=== PATIENT | male | born 1965 | race Caucasian/White ===

== ENCOUNTER 2024-01-27 21:03 | Emergency (ER) | payer OTHER ==
[~2024-01-27] VITALS: Ht 182.9 cm; Wt 104.3 kg
[~2024-01-27 21:03] MED LIST: DICLOFENAC SOD100 G1 TOP; FAMO20 PO; HYDMOR2 PO; HYDROCHLOROTH12.5 MG PO; MEDICAL MARIJUANA; METF500 PO; NAPR500 PO; NIAC500 PO; THERA-D2000 UNIT PO; TRAM50 PO; Ultram50 MG PO; Zofran Odt4 MG SL
[2024-01-27 21:44] LABS: BASOPHILS ABSOLUTE AUTO 0.04 K/mm3 (0.00-0.23); BASOPHILS PERCENT AUTO 0 % (0-2); EOSINOPHILS ABSOLUTE AUTO 0.02 K/mm3 (0.00-0.68); EOSINOPHILS PERCENT AUTO 0 % (0-6); Hematocrit 36.1 % (37.0-53.0); Hemoglobin 12.1 g/dL (13.5-17.5); IMMATURE GRAN ABSOLUTE AUTO 0.09 K/mm3 (0.00-0.10); IMMATURE GRAN PERCENT AUTO 1 % (0-1); LYMPHOCYTES ABSOLUTE AUTO 1.79 K/mm3 (0.84-5.20); LYMPHOCYTES PERCENT AUTO 18 % (21-46); MONOCYTES ABSOLUTE AUTO 0.55 K/mm3 (0.16-1.47); MONOCYTES PERCENT AUTO 6 % (4-13); Mean Corpuscular HGB Conc 33.5 g/dL (31.5-36.5); Mean Corpuscular Volume 98 fL (80-100); Mean Platelet Volume 9.1 fL (9.1-12.4); NEUTROPHILS ABSOLUTE AUTO 7.28 K/mm3 (1.96-9.15); NEUTROPHILS PERCENT AUTO 75 % (41-73); Platelet Count 338 K/mm3 (150-400); RDW Coefficient Variation 14.4 % (11.7-14.2); RDW Standard Deviation 51.4 fL (35.1-46.3); Red Blood Cell Count 3.67 M/mm3 (4.30-5.90); White Blood Cell Count 9.77 K/mm3 (4.00-11.30)
[2024-01-27 22:13] LABS: Alanine Aminotransfer (ALT/SGP 102 U/L (12-78); Albumin/Globulin Ratio 0.9 (0.8-1.8); Alk Phos 172 U/L (50-136); Anion Gap 10 mmol/L (3-11); Aspartate Aminotrans (AST/SGOT 45 U/L (12-37); Bilirubin, Total 0.5 mg/dL (0.1-1.0); Blood Urea Nitrogen 29 mg/dL (8-24); Bun/Creatinine Ratio 26.9 (12.0-20.0); CO2, Blood 24 mmol/L (21-32); Calcium, Blood 8.5 mg/dL (8.5-10.1); Chloride, Blood 109 mmol/L (98-108); Creatinine, Blood 1.08 mg/dL (0.60-1.20); Globulin, Blood 3.4 g/dL (2.2-4.0); Glomerular Filtration Rate 79 (60-); Glucose, Blood 322 mg/dL (70-99); Potassium, Blood 4.2 mmol/L (3.5-5.5); Sodium, Blood 139 mmol/L (136-145); Total Protein, Blood 6.4 g/dL (6.4-8.2)
[2024-01-27 22:57] LABS: Magnesium, Blood 1.5 mg/dL (1.6-2.4)
[2024-01-27 23:06] LABS: Ethanol (Alcohol), Blood, Med <3 mg/dL
[2024-01-27] MEDS ORDERED: Insulin Regular 100 Unit/ML 1ML Dose SC ONE (23:40)
[2024-01-27] MEDS ORDERED: Furosemide 10 MG / ML 2ML Vial IV ONE (23:40)
[2024-01-27] MEDS ORDERED: Magnesium Oxide 400 MG Tab PO ONE (23:55)
[2024-01-28] VITALS: BP 129/84
[2024-01-28] MEDS ORDERED: Lasix20 MG PO ×2 (00:01→13:53)
[2024-01-28] MEDS ORDERED: Amiodarone HCl200 MG PO (21:00)
[2024-01-28] MEDS ORDERED: Restoril7.5 MG PO (21:01)
[2024-01-28] MEDS ORDERED: AMLODIPINE BESYL5 MG PO (21:01)
[2024-01-28] MEDS ORDERED: LIPITOR80 MG PO (21:01)
[2024-01-28] MEDS ORDERED: METOPROLOL TART5010 PO (21:02)
[2024-01-28] MEDS ORDERED: ELIQUIS5 M3 PO (21:02)
[2024-01-28] MEDS ORDERED: NIAC500 PO (21:02)
[2024-01-28] MEDS ORDERED: VITAMIN D32000 UNI1 PO (21:03)
[2024-01-28] MEDS ORDERED: BIKTARVY 50-201 EAC1 PO (21:03)
[2024-01-30] MEDS ORDERED: ASPI81CH PO (15:50)
[2024-01-30] MEDS ORDERED: FURO40 PO (15:51)
[2024-01-30] MEDS ORDERED: METO50ER PO (15:53)
[2024-01-30] MEDS ORDERED: NITR.4SL SL (15:53)
[2024-01-30] MEDS ORDERED: JARDIANCE25 MG PO (15:54)
[2024-01-30] MEDS ORDERED: POTCHL20ER PO (15:55)
== END 2024-01-28 00:11 | disposition home or self-care (01) ==
LOC: ER 21:03
PROVIDERS: Physician Assistant
DX: I50.9 Heart failure, unspecified (principal); E11.65 Type 2 diabetes mellitus with hyperglycemia; E83.42 Hypomagnesemia; Z79.84 Long term (current) use of oral hypoglycemic drugs; Z79.899 Other long term (current) drug therapy; Z91.018 Allergy to other foods; Z88.8 Allergy status to other drugs, medicaments and biological substances
CPT/HCPCS: 71046; 80053; 82947; 83605; 83690; 83735; 83880; 84145; 84484; 85025; 93005; 93010; 96374; 99285-25; A9270; J1815; J1940

== ENCOUNTER 2024-01-28 13:30 | Emergency (ER) | payer OTHER ==
[~2024-01-28] VITALS: Ht 182.9 cm; Wt 104.3 kg
[~2024-01-28 13:30] MED LIST changes: +Lasix20 MG PO
[2024-01-28 13:48] VITALS: BP 134/86
[2024-01-28] MEDS ORDERED: Lasix20 MG PO (13:53)
[2024-01-28] MEDS ORDERED: Furosemide 20 MG Tab PO ONE (13:55)
[2024-01-28] MEDS ORDERED: Amiodarone HCl200 MG PO (21:00)
[2024-01-28] MEDS ORDERED: Restoril7.5 MG PO (21:01)
[2024-01-28] MEDS ORDERED: LIPITOR80 MG PO (21:01)
[2024-01-28] MEDS ORDERED: AMLODIPINE BESYL5 MG PO (21:01)
[2024-01-28] MEDS ORDERED: METOPROLOL TART5010 PO (21:02)
[2024-01-28] MEDS ORDERED: NIAC500 PO (21:02)
[2024-01-28] MEDS ORDERED: ELIQUIS5 M3 PO (21:02)
[2024-01-28] MEDS ORDERED: BIKTARVY 50-201 EAC1 PO (21:03)
[2024-01-28] MEDS ORDERED: VITAMIN D32000 UNI1 PO (21:03)
[2024-01-30] MEDS ORDERED: ASPI81CH PO (15:50)
[2024-01-30] MEDS ORDERED: FURO40 PO (15:51)
[2024-01-30] MEDS ORDERED: METO50ER PO (15:53)
[2024-01-30] MEDS ORDERED: NITR.4SL SL (15:53)
[2024-01-30] MEDS ORDERED: JARDIANCE25 MG PO (15:54)
[2024-01-30] MEDS ORDERED: POTCHL20ER PO (15:55)
== END 2024-01-28 13:52 | disposition home or self-care (01) ==
LOC: ER 13:30
DX: Z76.0 Encounter for issue of repeat prescription (principal); E11.9 Type 2 diabetes mellitus without complications; Z91.018 Allergy to other foods; Z88.8 Allergy status to other drugs, medicaments and biological substances; Z79.84 Long term (current) use of oral hypoglycemic drugs; Z79.899 Other long term (current) drug therapy
CPT/HCPCS: 99282; A9270

== ENCOUNTER 2024-01-28 20:22 | Emergency (ER) | payer OTHER ==
[~2024-01-28] VITALS: Ht 182.9 cm; Wt 104.3 kg
[2024-01-28 21:00] LABS: BASOPHILS ABSOLUTE AUTO 0.04 K/mm3 (0.00-0.23); BASOPHILS PERCENT AUTO 0 % (0-2); EOSINOPHILS ABSOLUTE AUTO 0.04 K/mm3 (0.00-0.68); EOSINOPHILS PERCENT AUTO 0 % (0-6); Hematocrit 38.1 % (37.0-53.0); Hemoglobin 12.7 g/dL (13.5-17.5); IMMATURE GRAN ABSOLUTE AUTO 0.05 K/mm3 (0.00-0.10); IMMATURE GRAN PERCENT AUTO 1 % (0-1); LYMPHOCYTES ABSOLUTE AUTO 1.59 K/mm3 (0.84-5.20); LYMPHOCYTES PERCENT AUTO 16 % (21-46); MONOCYTES ABSOLUTE AUTO 0.54 K/mm3 (0.16-1.47); MONOCYTES PERCENT AUTO 5 % (4-13); Mean Corpuscular HGB 32.8 pg (26.0-34.0); Mean Corpuscular HGB Conc 33.3 g/dL (31.5-36.5); Mean Corpuscular Volume 98 fL (80-100); Mean Platelet Volume 9.1 fL (9.1-12.4); NEUTROPHILS ABSOLUTE AUTO 7.89 K/mm3 (1.96-9.15); NEUTROPHILS PERCENT AUTO 78 % (41-73); Platelet Count 365 K/mm3 (150-400); RDW Coefficient Variation 14.5 % (11.7-14.2); RDW Standard Deviation 51.9 fL (35.1-46.3); Red Blood Cell Count 3.87 M/mm3 (4.30-5.90); White Blood Cell Count 10.15 K/mm3 (4.00-11.30)
[2024-01-28] MEDS ORDERED: Amiodarone HCl200 MG PO (21:00)
[2024-01-28] MEDS ORDERED: AMLODIPINE BESYL5 MG PO (21:01)
[2024-01-28] MEDS ORDERED: Restoril7.5 MG PO (21:01)
[2024-01-28] MEDS ORDERED: LIPITOR80 MG PO (21:01)
[2024-01-28] MEDS ORDERED: ELIQUIS5 M3 PO (21:02)
[2024-01-28] MEDS ORDERED: METOPROLOL TART5010 PO (21:02)
[2024-01-28] MEDS ORDERED: NIAC500 PO (21:02)
[2024-01-28] MEDS ORDERED: VITAMIN D32000 UNI1 PO (21:03)
[2024-01-28] MEDS ORDERED: BIKTARVY 50-201 EAC1 PO (21:03)
[2024-01-28 21:20] LABS: Albumin, Blood 3.1 g/dL (3.4-5.0); Albumin/Globulin Ratio 0.8 (0.8-1.8); Bilirubin, Total 0.6 mg/dL (0.1-1.0); Bun/Creatinine Ratio 21.3 (12.0-20.0); Calcium, Blood 8.6 mg/dL (8.5-10.1); Creatinine, Blood 1.36 mg/dL (0.60-1.20); Globulin, Blood 3.8 g/dL (2.2-4.0); Potassium, Blood 4.4 mmol/L (3.5-5.5); Total Protein, Blood 6.9 g/dL (6.4-8.2)
[2024-01-28] MEDS ORDERED: Furosemide 10 MG/ML 4ML Vial IV ONE (23:40)
[2024-01-29 02:16] VITALS: BP 153/93
[2024-01-30] MEDS ORDERED: ASPI81CH PO (15:50)
[2024-01-30] MEDS ORDERED: FURO40 PO (15:51)
[2024-01-30] MEDS ORDERED: NITR.4SL SL (15:53)
[2024-01-30] MEDS ORDERED: METO50ER PO (15:53)
[2024-01-30] MEDS ORDERED: JARDIANCE25 MG PO (15:54)
[2024-01-30] MEDS ORDERED: POTCHL20ER PO (15:55)
== END 2024-01-29 02:18 | disposition home or self-care (01) ==
LOC: ER 20:22
PROVIDERS: Emergency Medicine
DX: I50.9 Heart failure, unspecified (principal); N17.9 Acute kidney failure, unspecified; Z95.1 Presence of aortocoronary bypass graft; E11.9 Type 2 diabetes mellitus without complications; Z79.84 Long term (current) use of oral hypoglycemic drugs; Z79.899 Other long term (current) drug therapy; Z91.018 Allergy to other foods; Z88.8 Allergy status to other drugs, medicaments and biological substances
CPT/HCPCS: 71046; 71260; 80053; 83880; 84484; 85025; 85379; 93005; 93010; 93971; 96374; 96374-59; 99285-25; J1940; Q9967

== ENCOUNTER 2024-07-22 10:08 | Inpatient (IN) | payer OTHER ==
[~2024-07-22] VITALS: Ht 177.8 cm; Wt 90.3 kg
[~2024-07-22 10:08] MED LIST changes: +AMLODIPINE BESYL5 MG PO; +ASPI81CH PO; +Amiodarone HCl200 MG PO; +BIKTARVY 50-201 EAC1 PO; +ELIQUIS5 M3 PO; +FURO40 PO; +JARDIANCE25 MG PO; +LIPITOR80 MG PO; +METO50ER PO; +METOPROLOL TART5010 PO; +NITR.4SL SL; +POTCHL20ER PO; +Restoril7.5 MG PO; +VITAMIN D32000 UNI1 PO
[2024-07-22 11:33] LABS: BASOPHILS ABSOLUTE AUTO 0.02 K/mm3 (0.00-0.23); BASOPHILS PERCENT AUTO 0 % (0-2); EOSINOPHILS ABSOLUTE AUTO 0.03 K/mm3 (0.00-0.68); EOSINOPHILS PERCENT AUTO 1 % (0-6); Hematocrit 52.2 % (37.0-53.0); Hemoglobin 18.1 g/dL (13.5-17.5); IMMATURE GRAN ABSOLUTE AUTO 0.04 K/mm3 (0.00-0.10); IMMATURE GRAN PERCENT AUTO 1 % (0-1); LYMPHOCYTES ABSOLUTE AUTO 1.25 K/mm3 (0.84-5.20); LYMPHOCYTES PERCENT AUTO 20 % (21-46); MONOCYTES ABSOLUTE AUTO 0.52 K/mm3 (0.16-1.47); MONOCYTES PERCENT AUTO 8 % (4-13); Mean Corpuscular HGB Conc 34.7 g/dL (31.5-36.5); Mean Corpuscular Volume 95 fL (80-100); Mean Platelet Volume 10.6 fL (9.1-12.4); NEUTROPHILS ABSOLUTE AUTO 4.48 K/mm3 (1.96-9.15); NEUTROPHILS PERCENT AUTO 71 % (41-73); Platelet Count 190 K/mm3 (150-400); RDW Coefficient Variation 15.5 % (11.7-14.2); RDW Standard Deviation 54.4 fL (35.1-46.3); Red Blood Cell Count 5.49 M/mm3 (4.30-5.90); White Blood Cell Count 6.34 K/mm3 (4.00-11.30)
[2024-07-22 11:34] LABS: Bilirubin, Total 1.9 mg/dL (0.1-1.0); Bun/Creatinine Ratio 17.8 (12.0-20.0); Calcium, Blood 9.9 mg/dL (8.5-10.1); Creatinine, Blood 1.01 mg/dL (0.60-1.20); Globulin, Blood 3.9 g/dL (2.2-4.0); Potassium, Blood 3.9 mmol/L (3.5-5.5); Total Protein, Blood 7.9 g/dL (6.4-8.2)
[2024-07-22] MEDS ORDERED: Nitroglycerin 0.4 MG SUBL SL PRN (18:30)
[2024-07-22 19:19] LABS: Anti-Xa UFH, PHA Monitoring 0.72 IU/mL; International Normalized Ratio 1.01; Prothrombin Time Results 10.8 Sec (9.7-11.5)
[2024-07-22] MEDS ORDERED: Dose Adjust by Pharmacy XX STA (19:52)
[2024-07-22] MEDS ORDERED: Heparin Sodium,Porcine/0.5 NS 500 ML IV SCH (19:55)
[2024-07-22] MEDS ORDERED: FLU VACC TS2024-25(6MOS UP)/PF 45 MCG/0.5 ML SYRINGE IM ONE (20:00)
[2024-07-22] MEDS ORDERED: Insulin Human Lispro 100 Units/ML 3ML Syringe SC SCH (21:00)
[2024-07-22] MEDS ORDERED: Atorvastatin 40 MG Tab PO SCH (21:00)
[2024-07-22] MEDS ORDERED: Amiodarone HCl 200 MG Tab PO SCH (21:00)
[2024-07-22] MEDS ORDERED: Temazepam 7.5 MG Cap PO SCH (21:00)
--- NOTE | 2024-07-22 21:30 | NUR ---
PT ARRIVED TO UNIT. VSS ON RA. PT HAS NO CURRENT C/O CP, SOB, OR DIZZINESS. PT ON TELE- NSR 80s. NEW PIV PLACED IN L FOREARM FOR COMFORT PER PT REQ. HEPARIN DRIP CONTINUED. PT AMBULATING INDEPENDENTLY. CBG 164 UPON ARRIVAL TO UNIT. NPO AT 0000 FOR HEART CATH PROCEDURE. CALL REED WITHIN REACH. NO FURTHER QUESTIONS OR CONCERNS AT THIS TIME. WILL CONTINUE TO MONITOR.
[2024-07-22 21:36] VITALS: BP 104/88
[2024-07-23] VITALS (7 sets, daily range): BP systolic 103–124; BP diastolic 67–86
[2024-07-23 02:17] LABS: Hematocrit 49.5 % (37.0-53.0); Hemoglobin 17.2 g/dL (13.5-17.5); Mean Corpuscular HGB 33.1 pg (26.0-34.0); Mean Corpuscular HGB Conc 34.7 g/dL (31.5-36.5); Mean Corpuscular Volume 95 fL (80-100); Mean Platelet Volume 10.2 fL (9.1-12.4); Platelet Count 192 K/mm3 (150-400); RDW Coefficient Variation 15.1 % (11.7-14.2); RDW Standard Deviation 52.9 fL (35.1-46.3); White Blood Cell Count 7.13 K/mm3 (4.00-11.30)
[2024-07-23 02:20] LABS: Bun/Creatinine Ratio 16.4 (12.0-20.0); Calcium, Blood 9.3 mg/dL (8.5-10.1); Creatinine, Blood 0.85 mg/dL (0.60-1.20); Potassium, Blood 3.7 mmol/L (3.5-5.5)
[2024-07-23] MEDS ORDERED: Dose Adjust by Pharmacy XX STA (02:49)
--- NOTE | 2024-07-23 05:40 | NUR ---
SHIFT SUMMARY. PT A&OX4. VSS ON RA. PT HAS NO CURRENT C/O CP, SOB, DIZZINESS. PT NSR 80s ON MONITOR. HEPARIN DRIP CONTINUES. PT NPO SINCE 0000 FOR ANGIO. PT AMBULATING IND TO BATHROOM. NO FURTHER QUESTIONS OR CONCERNS AT THIS TIME. PT AWARE OF PLAN OF CARE. CALL REED WITHIN REACH.
[2024-07-23] MEDS ORDERED: Potassium Chloride 20 MEQ TabCR PO SCH (09:00)
[2024-07-23] MEDS ORDERED: Empagliflozin 25 MG TAB PO SCH (09:00)
[2024-07-23] MEDS ORDERED: AmLODIPine Besylate 5 MG Tab PO SCH (09:00)
[2024-07-23] MEDS ORDERED: Cholecalciferol 1000 Unit Tablet (=25MCG) PO SCH (09:00)
[2024-07-23] MEDS ORDERED: Aspirin 81 MG Chew PO SCH (09:00)
[2024-07-23] MEDS ORDERED: Metoprolol Succinate 50 MG TABCR PO SCH (09:00)
[2024-07-23] MEDS ORDERED: BICTEGRAVIR EMTRICITABINE TENOFOVIR PO SCH (09:00)
[2024-07-23] MEDS ORDERED: Furosemide 40 MG Tab PO SCH (09:00)
[2024-07-23] MEDS ORDERED: Tamsulosin HCl 0.4 MG Cap PO SCH (09:00)
[2024-07-23] MEDS ORDERED: CHLORTHALIDONE 50 MG PO SCH (09:00)
--- NOTE | 2024-07-23 19:32 | NUR ---
SHIFT SUMMARY PT A&Ox4, CALLS AND COMMUNICATES NEEDS APPROPRIATELY. IND IN ROOM. IRRITIABLE THROUGHOUT SHIFT BUT COOPERATIVE WITH CARE. BP STABLE, SINUS 80's, DENIES CP PRESSURE. NOTIFIED PHYSICIAN OF TROP GOING FROM [phone] TO [phone], NO NEW ORDERS OR INSTRUCTIONS GIVEN. PT TO BE NPO AT MIDNIGHT FOR ANGIO IN MORNING. NO OTHER EVENTS, WILL REPORT TO ONCOMING RN.
[2024-07-24] VITALS (19 sets, daily range): BP systolic 107–131; BP diastolic 67–92
--- NOTE | 2024-07-24 | NUR ---
VSS ON RA. PT HAS NO C/O CP. NSR 80s ON MONITOR. NO FURTHER QUESTIONS OR CONCERNS AT THIS TIME. PT PLACED NPO @ 0000 FOR ANGIO IN AM. PT AMBULATING INDEPENDENTLY IN ROOM. PLAN OF CARE ONGOING.
[2024-07-24] MEDS ORDERED: Clarify Drug Order XX ONE ×2 (01:50→05:55)
[2024-07-24 05:15] LABS: BASOPHILS ABSOLUTE AUTO 0.02 K/mm3 (0.00-0.23); BASOPHILS PERCENT AUTO 0 % (0-2); EOSINOPHILS ABSOLUTE AUTO 0.04 K/mm3 (0.00-0.68); EOSINOPHILS PERCENT AUTO 1 % (0-6); Hematocrit 52.8 % (37.0-53.0); Hemoglobin 18.3 g/dL (13.5-17.5); IMMATURE GRAN ABSOLUTE AUTO 0.03 K/mm3 (0.00-0.10); IMMATURE GRAN PERCENT AUTO 1 % (0-1); LYMPHOCYTES ABSOLUTE AUTO 2.04 K/mm3 (0.84-5.20); LYMPHOCYTES PERCENT AUTO 32 % (21-46); MONOCYTES ABSOLUTE AUTO 0.77 K/mm3 (0.16-1.47); MONOCYTES PERCENT AUTO 12 % (4-13); Mean Corpuscular HGB Conc 34.7 g/dL (31.5-36.5); Mean Corpuscular Volume 95 fL (80-100); Mean Platelet Volume 10.3 fL (9.1-12.4); NEUTROPHILS ABSOLUTE AUTO 3.45 K/mm3 (1.96-9.15); NEUTROPHILS PERCENT AUTO 54 % (41-73); Platelet Count 182 K/mm3 (150-400); RDW Coefficient Variation 15.2 % (11.7-14.2); RDW Standard Deviation 53.3 fL (35.1-46.3); Red Blood Cell Count 5.55 M/mm3 (4.30-5.90); White Blood Cell Count 6.35 K/mm3 (4.00-11.30)
--- NOTE | 2024-07-24 05:57 | NUR ---
SHIFT SUMMARY PT REMAINS A&OX4. VSS ON RA. NO C/O CP THROUGHOUT NIGHT. PT IND IN ROOM. PT MADE NPO @ 0000 FOR ANGIO IN AM. NO FURTHER QUESTIONS OR CONCERNS AT THIS TIME. PLAN OF CARE ONGOING.
[2024-07-24] MEDS ORDERED: Calcium Carbonate 500 MG Tab Chew PO PRN (09:20)
--- NOTE | 2024-07-24 10:07 | NUR ---
UPDATE Pt called RN into room with C/O 4/10 chest pain and tightness. Tele showed some ST changes. EKG obtained, BP 123/98, nitro SL given per orders. Brought CP down to 2/10, now C/O Headache. Will notify physician. Call light within reach.
[2024-07-24] MEDS ORDERED: Verapamil HCL 2.5 MG/ML 2ML Injection ONE (10:26)
[2024-07-24] MEDS ORDERED: Heparin Sodium 1000 Units/ML 10ML MDV ONE (10:26)
[2024-07-24] MEDS ORDERED: NS 250 ML IV ONE (10:27)
[2024-07-24] MEDS ORDERED: Nitroglycerin 2 MG/20 ML BTL ONE (10:27)
[2024-07-24] MEDS ORDERED: NS 1,000 ML IV ONE ×2 (10:27→10:52)
[2024-07-24] MEDS ORDERED: Midazolam HCl 1MG / ML 2ML Vial ONE (10:46)
[2024-07-24] MEDS ORDERED: FentaNYL Citrate 50 MCG/ML 2 ML Injection ONE (10:46)
[2024-07-24] MEDS ORDERED: Tirofiban HCL Monohydrate 3.75 MG/15 ML Vial ONE (11:11)
[2024-07-24] MEDS ORDERED: Ticagrelor 90 MG TABLET ONE (11:14)
--- NOTE | 2024-07-24 14:20 | NUR ---
RN NOTE MR BENTLEY IS ALERT, ORIENTATED X4. HE HAD EPISODE OF CHEST PAIN THIS MORNING, SEE TIRE FIXER NOTE, DOWN TO 09/16 WHEN HE LEFT FOR ELECTRONIC TESTER AT 1040HRS. HEPARIN GTT STOPPED BY ELECTRONIC TESTER STAFF PRIOR TO TAKING HIM TO PROCEDURE. RETURNED FROM ELECTRONIC TESTER AT 114HRS. NO FURTHER EPISODES OF CHEST PAIN. RIGHT GROIN ACCESS SITE SOFT, NON PAINFUL, NO SWELLING, NO BLEEDING. RIGHT FOOT PULSES PALPABLE AND NO NUMBNESS OR TINGLING. HE LAY FLAT X 2 HOURS THEN HOB ELEVATED 15 DEGREES. HE HAS TOLERATED PO FLUIDS AND SNACKS WITHOUT NAUSEA. SR ON TELEMETRY. BED LOW, CALL LIGHT IN REACH.
--- NOTE | 2024-07-24 17:08 | NUR ---
SHIFT SUMMARY SEE RN NOTE 1420HRS. MR BENTLEY IS DOING WELL POST ANGIO. SITTING UP AT ~40 DEGREES. ON BEDREST UNTIL 1745HRS. R FEMORAL SITE SOFT, NON TENDER, NO BLEEDING. NO NUMBNESS OR TINGLING TO FEET, PULSES PALPABLE. NO EPISODES OF CHEST PAIN OR NAUSEA POST ANGIO. SR ON TELEMETRY. BED LOW, CALL LIGHT IN REACH.
--- NOTE | 2024-07-24 19:54 | NUR ---
START OF SHIFT THIS RN ASSUMED CARE AT APPROXIMATELY 1900. PT SITTING COMFORTABLY IN CHAIR ON RA. PT STATED HE HOPES TO GO HOME TOMORROW. PT DENIES ANY NEW ACUTE PAIN. WILL CONTINUE PLAN OF CARE.
[2024-07-24] MEDS ORDERED: Ticagrelor 90 MG TABLET PO SCH (21:00)
[2024-07-25 03:25] VITALS: BP 118/81
[2024-07-25 04:35] LABS: Hematocrit 50.8 % (37.0-53.0); Hemoglobin 17.9 g/dL (13.5-17.5); Mean Corpuscular HGB 33.1 pg (26.0-34.0); Mean Corpuscular HGB Conc 35.2 g/dL (31.5-36.5); Mean Corpuscular Volume 94 fL (80-100); Mean Platelet Volume 10.3 fL (9.1-12.4); Platelet Count 193 K/mm3 (150-400); RDW Coefficient Variation 15.3 % (11.7-14.2); RDW Standard Deviation 52.2 fL (35.1-46.3); White Blood Cell Count 7.04 K/mm3 (4.00-11.30)
--- NOTE | 2024-07-25 04:41 | NUR ---
SHIFT SUMMARY PT RESTING COMFORTABLY IN BED. PT COMPLAINED OF R GROIN SITE PAIN 1X DURING THE NIGHT. SITE APPEARS THE SAME THE BEGINNING. PT STATED IT HURTS WHEN YOU PRESS ON THE ACTUAL INSERTION SITE ON THE R FEM. PT HAD TWO EPISODES OF UNSUSTAINED ASYMPTOMATIC TRI-QUADGEMINY. NO OTHER ACUTE EVENTS OVER NIGHT. WILL CONTINUE PLAN OF CARE.
[2024-07-25 05:17] LABS: Anion Gap 17 mmol/L (3-11); Blood Urea Nitrogen 21 mg/dL (8-24); CHOL/HDL RATIO 3.4; CO2, Blood 19 mmol/L (21-32); Calcium, Blood 9.4 mg/dL (8.5-10.1); Chloride, Blood 105 mmol/L (98-108); Cholesterol 131 mg/dL (50-200); Glomerular Filtration Rate 87 (60-); Glucose, Blood 114 mg/dL (70-99); HDL Cholesterol 39 mg/dL (>39); LDL/HDL RATIO 1.6; Low Density Lipoprotein Chol 61 mg/dL (0-110); Potassium, Blood 3.6 mmol/L (3.5-5.5); Sodium, Blood 137 mmol/L (136-145); Triglycerides 153 mg/dL (30-160); Very Low Density Lipoprot Chol 30 mg/dL (6-32)
[2024-07-25 07:53] VITALS: BP 134/93
[2024-07-25] MEDS ORDERED: Apixaban 5 MG Tab PO SCH (09:00)
[2024-07-25] MEDS ORDERED: TICA90TA PO (11:56)
[2024-07-25] MEDS ORDERED: Flomax0.4 MG PO (11:56)
--- NOTE | 2024-07-25 13:30 | NUR ---
DISCHARGE SUMMARY PT DISCHARGED WITH DISCHARGE INSTRUCTIONS GIVEN VERBALLY AND IN WRITING. IV REMOVED AND DRESSED WITH GAUZE AND COBAN. PT LEFT WITH ALL BELONGINGS, WALKED TO THE EXIT, AND DRIVEN HOME BY HIS DAUGHTER.
== END 2024-07-25 12:16 | disposition home or self-care (01) | DRG 322 ==
LOC: ER 10:08 → PCU 19:13
PROVIDERS: Emergency Medicine; ADMIT Internal Medicine
PROC: 027034Z Dilation of Coronary Artery, One Artery with Drug-eluting Intraluminal Device, Percutaneous Approach (ICD-10-PCS; principal; 2024-07-24)
PROC: B2111ZZ Fluoroscopy of Multiple Coronary Arteries using Low Osmolar Contrast (ICD-10-PCS; 2024-07-24)
PROC: 4A023N7 Measurement of Cardiac Sampling and Pressure, Left Heart, Percutaneous Approach (ICD-10-PCS; 2024-07-24)
DX: I21.19 ST elevation (STEMI) myocardial infarction involving other coronary artery of inferior wall (principal); I48.92 Unspecified atrial flutter; I50.32 Chronic diastolic (congestive) heart failure; Q26.3 Partial anomalous pulmonary venous connection; I25.10 Atherosclerotic heart disease of native coronary artery without angina pectoris; I11.0 Hypertensive heart disease with heart failure; E11.9 Type 2 diabetes mellitus without complications; E78.5 Hyperlipidemia, unspecified; N40.0 Benign prostatic hyperplasia without lower urinary tract symptoms; E55.9 Vitamin D deficiency, unspecified; Z21 Asymptomatic human immunodeficiency virus [HIV] infection status; I48.0 Paroxysmal atrial fibrillation; Z95.1 Presence of aortocoronary bypass graft; Z86.711 Personal history of pulmonary embolism; Z98.890 Other specified postprocedural states; Z87.19 Personal history of other diseases of the digestive system; Z88.8 Allergy status to other drugs, medicaments and biological substances; Z91.018 Allergy to other foods; Z79.01 Long term (current) use of anticoagulants; Z79.82 Long term (current) use of aspirin; Z79.899 Other long term (current) drug therapy; Z79.84 Long term (current) use of oral hypoglycemic drugs; Z90.89 Acquired absence of other organs
CPT/HCPCS: 36415; 71045; 76937; 80048; 80053; 80061; 82947; 83036; 84484; 85025; 85027; 85520; 85610; 85730; 93005; 93010; 93306; 93455; 99152; 99153; 99285-25; A9270; C1760; C1769; C1874; C1887; C1894; C9600; C9606; J1644; J2250; J3010; J3246; J7030; J7050; Q9967

== ENCOUNTER 2024-07-28 05:29 | Emergency (ER) | payer OTHER ==
[~2024-07-28] VITALS: Ht 182.9 cm; Wt 113.4 kg
[~2024-07-28 05:29] MED LIST changes: +Flomax0.4 MG PO; +TICA90TA PO
[2024-07-28 06:36] LABS: BASOPHILS ABSOLUTE AUTO 0.04 K/mm3 (0.00-0.23); BASOPHILS PERCENT AUTO 1 % (0-2); EOSINOPHILS ABSOLUTE AUTO 0.07 K/mm3 (0.00-0.68); EOSINOPHILS PERCENT AUTO 1 % (0-6); Hematocrit 44.9 % (37.0-53.0); Hemoglobin 15.7 g/dL (13.5-17.5); IMMATURE GRAN ABSOLUTE AUTO 0.01 K/mm3 (0.00-0.10); IMMATURE GRAN PERCENT AUTO 0 % (0-1); LYMPHOCYTES ABSOLUTE AUTO 1.77 K/mm3 (0.84-5.20); LYMPHOCYTES PERCENT AUTO 29 % (21-46); MONOCYTES ABSOLUTE AUTO 0.64 K/mm3 (0.16-1.47); MONOCYTES PERCENT AUTO 11 % (4-13); Mean Corpuscular HGB 33.5 pg (26.0-34.0); Mean Corpuscular Volume 96 fL (80-100); Mean Platelet Volume 10.5 fL (9.1-12.4); NEUTROPHILS ABSOLUTE AUTO 3.55 K/mm3 (1.96-9.15); NEUTROPHILS PERCENT AUTO 58 % (41-73); Platelet Count 184 K/mm3 (150-400); RDW Coefficient Variation 15.1 % (11.7-14.2); RDW Standard Deviation 53.1 fL (35.1-46.3); Red Blood Cell Count 4.68 M/mm3 (4.30-5.90); White Blood Cell Count 6.08 K/mm3 (4.00-11.30)
[2024-07-28 06:52] LABS: Albumin, Blood 3.2 g/dL (3.4-5.0); Albumin/Globulin Ratio 0.8 (0.8-1.8); Bilirubin, Total 1.3 mg/dL (0.1-1.0); Bun/Creatinine Ratio 30.4 (12.0-20.0); Calcium, Blood 8.9 mg/dL (8.5-10.1); Creatinine, Blood 1.02 mg/dL (0.60-1.20); Globulin, Blood 3.8 g/dL (2.2-4.0); Potassium, Blood 3.9 mmol/L (3.5-5.5)
[2024-07-28] MEDS ORDERED: Furosemide 10 MG / ML 2ML Vial IV ONE (07:10)
[2024-07-28 10:00] VITALS: BP 128/80
== END 2024-07-28 10:20 | disposition home or self-care (01) ==
LOC: ER 05:29
PROVIDERS: Student in an Organized Health Care Education/Training Program
DX: I11.0 Hypertensive heart disease with heart failure (principal); I50.30 Unspecified diastolic (congestive) heart failure; R06.01 Orthopnea; R79.89 Other specified abnormal findings of blood chemistry; I25.2 Old myocardial infarction; E78.5 Hyperlipidemia, unspecified; E11.9 Type 2 diabetes mellitus without complications; Z79.82 Long term (current) use of aspirin; Z79.84 Long term (current) use of oral hypoglycemic drugs; Z79.899 Other long term (current) drug therapy; Z91.018 Allergy to other foods; Z91.048 Other nonmedicinal substance allergy status
CPT/HCPCS: 71045; 80053; 83880; 84484; 85025; 93005; 93010; 96374; 99285-25; J1940